=== PATIENT | male | born 1995 | race Caucasian/White ===

== ENCOUNTER 2025-05-09 16:08 | Outpatient (REF) | payer MEDICAID, SELFPAY ==
--- OUTSIDE RECORDS SUMMARY | 2025-05-09 15:20 | XMS_ITS | Encounter Summary ---
Author Organization [employer] Address [address] [place] [address] Care Team Providers Care Geothermal Powerplant Supervisor Name Role Phone Nadine Fry MD Primary Care Provide r Reason for Visit * Reason Comments Exposure to STD Encounter Details Date Type Department Care Team (Late st Contact Info) Description 05/09/2025 3:20 PM EDT Office Visit [facility] [address] [place] [address] Nadine Fry MD [address] [place] [address] Herpes simplex infection of penis (Primary Dx); Screening examination for STI; Trichomoniasis; Elevated blood pressure reading Social History Tobacco Use Types Packs/Day Years Used Date Smoking Tobacco: Every Day Cigarettes Passive Smoke Exposure: Current Smokeless Tobacco: Never Tobacco Cessation:Ready to Q uit: Not Asked; Counseling Given: Not Answered Sex and Gender Information Value Date Recorded Sex Assigned at Male 05/09/2025 1:14 PM EDT Legal Sex Male 2:45 AM EDT Gender Identity Male 05/09/2025 1:14 PM EDT Sexual Orientation Straight 05/09/2025 1: 14 PM EDT documented as of this encounter Last Filed Vital Signs Vital Sign Reading Time Taken Comments Blood Pressure 147/88 05/09/2025 3:03 PM EDT Pulse 94 05/09/2025 3:03 PM EDT Temperature 37.2 C (99 F) 05/09/2025 3:03 PM EDT Respiratory Rate 18 05/09/2025 3:03 PM EDT Oxygen Saturation 96% 05/09/2025 3:03 PM EDT Inhaled Oxygen Concentration - - Weight 60.5 kg (133 lb 6.4 oz) 05/09/2025 3:03 P M EDT Height 160 cm (5' 3 ) 05/09/2025 3:03 PM EDT Body Mass Index 23.63 05/09/2025 3:03 PM EDT documented in this encounter Progress Notes * Nadine Salazar MD - 05/09/2025 3:20 PM EDT SUBJECTIVE: Jose Angel Padron is a 30 y.o. year old male who presents for New patient/acute visit . Occupation:he works on freezers with [employer] Lives with:partner - EtOH on holidays and special ocassions 6 drinks - smoking cigarettes 1 pack daily - recreational drug use: marijuana smokes every day Diet:regular Exercise:3 times a week 45 min cardiovascular exercise Surgeries/Hospitalizations:appendicectomy PMHx:genital herpes ( age 17) FMHx:grandmother paternal colon cancer >60 y/o Immunizations: Reviewed Acute Concerns: Patient reports herpes outbreak for 1 week Patient also reports his partner came back positive today for trichomoniasis and started treatment Social History Social History Narrative Not on file Problem List[1] Family History[2] Review of Systems Constitutional: Negative. HENT: Negative. Respiratory: Negative. Cardiovascular: Negative. Genitourinary: Positive for genital sores. Negative for decreased urine volume, difficulty urinating, dysuria, enuresis, flank pain, frequency, hematuria, penile discharge, penile pain, penile swelling, scrotal swelling, testicular pain and urgency. Skin: Positive for rash. OBJECTIVE: Vitals: 05/09/25 1503 BP: (!) 147/88 BP Location: Left arm Patient Position: Sitting BP Cuff Size: Adult Pulse: 94 Resp: 18 Temp: 99 ??F (37.2 ??C) TempSrc: Temporal SpO2: 96% Weight: 133 lb 6.4 oz (60.5 kg) Height: 5' 3 (1.6 m) Physical Exam Constitutional: Appearance: Normal appearance. Cardiovascular: Rate and Rhythm: Normal rate and regular rhythm. Pulmonary: Effort: Pulmonary effort is normal. Breath sounds: Normal breath sounds. Abdominal: General: Abdomen is flat. Palpations: Abdomen is soft. Musculoskeletal: Right lower leg: No edema. Left lower leg: No edema. Neurological: Mental Status: He is alert. Follow Up: No follow-ups on file. Medications Ordered Prior to Encounter[3] Problem List Items Addressed This Visit Herpes simplex infection of penis - Primary Relevant Medications acyclovir (Zovirax) 800 MG tablet metroNIDAZOLE (Flagyl) 500 MG tablet Screening examination for STI Relevant Medications acyclovir (Zovirax) 800 MG tablet metroNIDAZOLE (Flagyl) 500 MG tablet Other Relevant Orders Chlamydia/Trichomonas/Neisseria gonorrhoeae, PCR, Urine HIV-1/2 Antigen and Antibodies, Fourth Generation, with Reflexes Hepatitis A,B,C Profile RPR (Monitor) with Reflex to Titer Trichomoniasis Relevant Medications acyclovir (Zovirax) 800 MG tablet metroNIDAZOLE (Flagyl) 500 MG tablet Elevated blood pressure reading I advised low-sodium diet and to maintain a healthy weight, I will reevaluate on next visit [1] Patient Active Problem List Diagnosis Herpes simplex infection of penis Screening examination for STI Trichomoniasis Elevated blood pressure reading [2] No family history on file. [3] No current outpatient medications on file prior to visit. No current facility-administered medications on file prior to visit. documented in this encounter Miscellaneous Notes * Assessment & Plan Note - Nadine Salazar MD - 05/09/2025 4:16 PM EDT Associated Problem(s): Elevated blood pressure reading I advised low-sodium diet and to maintain a healthy weight, I will reevaluate on next visit documented in this encounter Plan of Treatment Upcoming Encounters Date Type Department Care Team (Late st Contact Info) Description 06/30/2025 1:15 PM EST Office Visit [facility] [address] [place] [address] Nadine Fry MD [address] [place] [address] Scheduled Orders Name Type Priority Associated Diagnoses Orde r Schedule HIV-1/2 Antigen and Antibodies, Fourth Generation, with Reflexes Lab Routine Screening examination for STI Expected: 05/09/2025 (Approximate), Expires: 05/09/2026 Hepatitis A,B,C Profile Lab Routine Screening examination for STI Expected: 05/09/2025, Expires: 05/09/2026 RPR (Monitor) with Reflex to Titer Lab Routine Screening examination for STI Expected: 05/09/2025, Expires: 05/09/2026 documented as of this encounter Procedures Procedure Name Priority Date/Time Associated Diagnosis Comments CHLAMYDIA/TRICHOMON /NEISSERIA GONORRHOEAE, PCR, URINE Routine 05/09/2025 3:20 PM EDT Screening examination for STI documented in this encounter Results * Chlamydia/Trichomonas/Neisseria gonorrhoeae, PCR, Urine (05/09/2025 3:20 PM EDT) CT PCR, Urine NOT DETECTED Not Detect. [facility] Comment:A not detected test result does not exclude the possibilityof infection because test results can be affected byimproper specimen collection, concurrent antibiotic therapy,or the number of organisms in the specimen which may bebelow the sensitivity of the test. As with many diagnostictests, results from the Xpert CT/NG assay should beinterpreted in conjunction with other laboratory andclinical data available to the clinician.The Xpert CT/NG assay should not be used for the evaluationof suspected sexual abuse or for other medico-legalindications. Additional testing is recommended in anycircumstance when false positive or false negative resultscould lead to adverse medical, social or psychologicalconsequences. NG PCR, Urine NOT DETECTED Not Detect. [facility] Comment:A not detected test result does not exclude the possibilityof infection because test results can be affected byimproper specimen collection, concurrent antibiotic therapy,or the number of organisms in the specimen which may bebelow the sensitivity of the test. As with many diagnostictests, results from the Xpert CT/NG assay should beinterpreted in conjunction with other laboratory andclinical data available to the clinician.The Xpert CT/NG assay should not be used for the evaluationof suspected sexual abuse or for other medico-legalindications. Additional testing is recommended in anycircumstance when false positive or false negative resultscould lead to adverse medical, social or psychologicalconsequences. Urine (Urine, Random) 05/09/2025 3:20 PM EDT 05/09/2025 4:16 PM EDT us Nadine Salazar MD LAB URINE ORDERABLES Final Result [facility] [address] [place] [phone] [phone] documented in this encounter Visit Diagnoses Diagnosis Herpes simplex infection of penis- Primary Screening examination for STI Trichomoniasis Elevated blood pressure reading Elevated blood pressure reading without diagnosis of hypertension documented in this encounter Care Teams Geothermal Powerplant Supervisor Relationship Specialty Start Date End Date Nadine Fry MD [address] [place] [phone] PCP - General Internal Medicine 05/09/25 documented as of this encounter
[2025-05-09 18:10] LABS: CT PCR Urine NOT DETECTED (Not Detect.); NG PCR Urine NOT DETECTED (Not Detect.)
--- OUTSIDE RECORDS SUMMARY | 2025-05-09 20:34 | XMS_ITS | Encounter Summary ---
Author Organization [facility] Address [address] [place] [phone] Phone Care Team Providers Care Residential Pest Control Technician Name Role Phone Marta Marie NP Primary Care Provider Niurka arambula Encounter Details Date Type Department Care Team (Late st Contact Info) Description 03/06/2017 Conversion Encounter [facility] - [address] [address] Social History Tobacco Use Types Packs/Day Years Used Date Smoking Tobacco: Some Days Comments:Current some day sm oker Sex and Gender Information Value Date Recorded Sex Assigned at Not on file Legal Sex Male 4:55 PM EDT Gender Identity Not on file Sexual Orientation Not on file documented as of this encounter Plan of Treatment Not on file documented as of this encounter Visit Diagnoses Not on filedocumented in this encounter Care Teams Residential Pest Control Technician Relationship Specialty Start Date End Date Marta Marie NP PCP - General 02/28/17 11/05/22 documented as of this encounter
--- OUTSIDE RECORDS SUMMARY | 2025-05-09 20:34 | XMS_ITS | Clinical Summary ---
Author Organization [employer] [facility] Address [address] [facility] [address] [place] [address] Care Team Providers Care Lighting Fixture Installer Name Role Phone Nadine Fry MD Primary Care Provide r Allergies No known active allergies Medications acyclovir (Zovirax) 800 MG tabletIndicatio ns:Herpes simplex infection of penis Take 1 tablet (800 mg) by mouth 2 times daily for 5 days. 10 tablet 05/09/2025 5 Active metroNIDAZOLE (Flagyl) 500 MG tabletIndicatio ns:Trichomonias is Take 4 tablets (2,000 mg) by mouth 1 (one) time for 1 dose. 4 tablet 05/09/2025 5 Active Active Problems Problem Noted Date Diagnosed Date Herpes simplex infection of penis 05/09/2025 Screening examination for STI 05/09/2025 Trichomoniasis 05/09/2025 Elevated blood pressure reading 05/09/2025 Assessment & Plan (05/09/2025 4:16 PM EDT): I advised low-sodium diet and to maintain a healthy weight, I will reevaluate on next visit Encounters Date Type Department Care Team Description 05/09/2025 3:20 PM EDT Office Visit [facility] [address] [facility] [place] [address] Nadine Fry MD Herpes simplex infection of penis (Primary Dx); Screening examination for STI; Trichomoniasis; Elevated blood pressure reading 05/09/2025 Travel 03/23/2025 Population Health Risk Score [facility] ([facility]) Department [address] [facility] [address] [place] [address] Provider, Population Health Generic from Last 3 Months Social History Tobacco Use Types Packs/Day Years [...] Orientation Straight 05/09/2025 1: 14 PM EDT Last Filed Vital Signs Vital Sign Reading [...] Mass Index 23.63 05/09/2025 3:03 PM EDT Plan of Treatment Upcoming Encounters Date Type Department Care Team (Late st Contact Info) Description 06/30/2025 1:15 PM EST Office Visit [facility] MEDICINE [address] [place] [phone] Nadine Fry MD [address] [place] [address] Health Maintenance Due Date Last Done Comments Depression Screening 1996 HIV Screening 1996 Lipid Panel 1996 SDOH Screening 1996 Disability Screening 1996 Alcohol/Substance Use Screening 2008 Family Planning (PISQ) 2011 Hepatitis C Screening 2014 HPV Vaccines (2 - Male 3-dose series) 07/28/2014 06/30/2014 Pneumococcal Vaccine: Pediatrics (0 to 5 Years) and At-Risk Patients (6 to 49) Years (1 of 2 - PCV) 2015 COVID-19 Vaccine ( season) 2025 Influenza Vaccine (#1) 2025 4, 08/01/2009, 08/01/2009 Tobacco Screening 05/09/2026 05/09/2025 DTaP/Tdap/Td Vaccines (8 - Td or Tdap) 02/06/2035 02/06/2025, 08/01/2009, 03/04/2001, Additional history exists Zoster Vaccines (1 of 2) 2046 RSV Patients and Patients Aged 60 years or older (1 - 1-dose 75+ series) 2071 Hepatitis B Vaccines Completed 1996, 1996, 1996 HIB Vaccines Completed 11/23/1997, 11/19, 1996, Additional history exists IPV Vaccines Completed 03/04/2001, 12/1997, 1996, Additional history exists Meningococcal Vaccine Aged Out 08/01/2009 No celina flory eligible based on patient's age to complete this topic Hepatitis A Vaccines Aged Out No long er eligible based on patient's age to complete this topic Meningococcal B Vaccine Aged Out No l onger eligible based on patient's age to complete this topic RSV under 20 months Aged Out No longe r eligible based on patient's age to complete this topic Rotavirus Vaccines Aged Out No longer eligible based on patient's age to complete this topic Procedures Procedure Name Priority Date/Time Associated Diagnosis Comments CHLAMYDIA/TRICHOMON /NEISSERIA GONORRHOEAE, PCR, URINE Routine 05/09/2025 3:20 PM EDT Screening examination for STI from Last 3 Months Results * Chlamydia/Trichomonas/Neisseria gonorrhoeae, PCR, Urine (05/09/2025 3:20 PM EDT) CT PCR, Urine NOT DETECTED Not Detect. [facility] Comment:A not detected test result does [...] NG PCR, Urine NOT DETECTED Not Detect. [facility] Comment:A not detected test result does [...] Salazar MD LAB URINE ORDERABLES Final Result Performing Organization Address City/State/[facility] Co de Phone Number [facility] [address] [place] [phone] from Last 3 Months Insurance [facility] C[facility] Care Teams Lighting Fixture Installer Relationship Specialty Start Date End Date Nadine Fry MD [address] [place] [phone] PCP - General Internal Medicine 05/09/25
--- OUTSIDE RECORDS SUMMARY | 2025-05-09 20:34 | XMS_ITS | Encounter Summary ---
Author Organization [facility] Address [address] [place] [address] Phone Care Team Providers Care Public Employment Mediator Name Role Phone Marta Marie TUBE FILLER Primary Care Provider Niurka arambula Encounter Details Date Type Department Care Team (Late st Contact Info) Description 11/10/2013 Documentation [facility] Family Medicine [address] [place] [address] Family Medicine, Physician [address] [place] [address] Social History Tobacco Use Types Packs/Day Years Used Date Smoking Tobacco: Never Assessed Sex and Gender Information Value Date Recorded Sex Assigned at Not on file Legal Sex Male 4:55 PM EDT Gender Identity Not on file Sexual Orientation Not on file documented as of this encounter Plan of Treatment Not on file documented as of this encounter Visit Diagnoses Not on filedocumented in this encounter Care Teams Public Employment Mediator Relationship Specialty Start Date End Date Marta Marie NP PCP - General 02/28/17 11/05/22 documented as of this encounter
--- OUTSIDE RECORDS SUMMARY | 2025-05-09 20:34 | XMS_ITS | Encounter Summary ---
Author Organization [employer] Address [address] [facility] [address] [place] [address] Care Team Providers Care Oncology Account Specialist Name Role Phone Nadine Fry MD Primary Care Provide r Encounter Details Date Type Department Care Team (Latest Contact Info) Description 05/09/2025 Travel Social History Tobacco Use Types Packs/Day Years Used Date Smoking Tobacco: Every Day Cigarettes Passive Smoke Exposure: Current Smokeless Tobacco: Never Sex and Gender Information Value Date Recorded Sex Assigned at Male 05/09/2025 1:14 PM EDT Legal Sex Male 2:45 AM EDT Gender Identity Male 05/09/2025 1:14 PM EDT Sexual Orientation Straight 05/09/2025 1: 14 PM EDT documented as of this encounter Plan of Treatment Upcoming Encounters Date Type Department Care Team (Late st Contact Info) Description 06/30/2025 1:15 PM EST Office Visit [facility] MED[facility] [address] [place] [address] Nadine Fry MD [address] [place] [address] documented as of this encounter Visit Diagnoses Not on filedocumented in this encounter Care Teams Oncology Account Specialist Relationship Specialty Start Date End Date Nadine Fry MD [address] [place] [phone] PCP - General Internal Medicine 05/09/25 documented as of this encounter
--- OUTSIDE RECORDS SUMMARY | 2025-05-09 20:34 | XMS_ITS | Patient Health Record ---
Author Organization [facility] Address [address] [place] [address] Care Team Providers Care Disulfurizer Tender Name Role Phone NO, PCP Primary Care Provider [phone] Shikha Nicole Unavailable [phone] Reason For Referral No Information Social History Sex Assigned At : Social History Observation Description Sex Assigned At Male Encounters Encounter Location Date Provider Diagnosis [facility] [address] [place] [address] 11/11/2024 Shikha Nicole Plan Of Treatment No Information Insurance Providers Payer Name Payer Address Payer Phone Subscriber Number Group Number Insured Name Patient Relationship to Insured Coverage Start Date Coverage End Date [place] Standard [address] [place] [address] [id number] Jose Angel Padron Self - patient is the insured 5
--- OUTSIDE RECORDS SUMMARY | 2025-05-09 20:34 | XMS_ITS | Clinical Summary ---
Author Organization [facility] Address [address] [place] [address] Phone Care Team Providers Care Top Collar Baster Name Role Phone Unavailable Primary Care Provider Unavailabl e Immunizations Immunization Administration Dates Next Due DTaP 5 03/04/2001, 8,1996, 997,1996 H1N1 08/01/2009 HPV, Quadrivalent 06/30/2014 Hep B, ped/adol 1996,1996,1996 Hib (PRP-T) 11/23/1997, 7,1996, 996 IPV 03/04/2001 Influenza, injectable, quadrivalent 06/30/2014 Influenza, injectable, trivalent 08/01/2009 MMR 03/04/2001,11/23/1997 Meningococcal Conj (Menactra) MCV4P 08/01/2009 OPV 11/23/1997,1996,1996 Tdap 08/01/2009 Varicella 08/01/2009,03/04/2001 Family History Relation Name Status Comments Brother Alive Brother: Asthma Mother Alive Mother: Alive a nd well Other Family history of Seizure disorder, No family history of Migraines, Family history of Diabetes mellitus, Family history of Cancer, breast, No family history of Stroke, No family history of Obesity, No family history of Strabismus, No family history of Sudden , No family history of Heart disease Social History Tobacco Use Types Packs/Day Years Used Date Smoking Tobacco: Some Days Comments:Current some day sm oker Sex and Gender Information Value Date Recorded Sex Assigned at Not on file Legal Sex Male 4:55 PM EDT Gender Identity Not on file Sexual Orientation Not on file Last Filed Vital Signs Vital Sign Reading Time Taken Comments Blood Pressure 104/60 06/30/2014 12:00 AM EST Pulse 70 06/30/2014 12:00 AM EST Temperature 36.4 C (97.5 F) 03/16/2014 12:00 AM EDT Respiratory Rate - - Oxygen Saturation - - Inhaled Oxygen Concentration - - Weight 50.8 kg (112 lb) 06/30/2014 12:00 AM EST Height 157.5 cm (5' 2 ) 06/30/2014 12:00 AM EST Body Mass Index 20.49 06/30/2014 12:00 AM EST Plan of Treatment Health Maintenance Due Date Last Done Comments HPV Vaccines (2 - Male 3-dose series) 07/28/2014 06/30/2014 DTaP,Tdap,and Td Vaccines (7 - Td or Tdap) 08/01/2019 08/01/2009, 03/04/2001, 11/23/1997, Additional history exists Influenza Vaccines (#1) 2025 06/30/2014, 08/01 COVID-19 Vaccine ( - season) 2025 Hepatitis B Vaccines Completed 1996, 1996, 1996 HIB Vaccines Completed 11/23/1997, 11/19, 1996, Additional history exists IPV Vaccines Completed 03/04/2001, 12/1997, 1996, Additional history exists MMR Vaccines Completed 03/04/2001, 11/23/1997 Meningococcal Vaccine Aged Out 08/01/2009 No celina flory eligible based on patient's age to complete this topic Varicella Vaccines Completed 08/01/2009, 03/04/2001 Hepatitis A Vaccines Aged Out No long er eligible based on patient's age to complete this topic Men B Vaccine Aged Out No longer elig ible based on patient's age to complete this topic Pneumococcal Vaccine Aged Out No long er eligible based on patient's age to complete this topic
== END 2025-05-09 16:09 | disposition home or self-care (01) ==
LOC: HO.HHCLNP 16:08
PROVIDERS: Visit Provider Internal Medicine
DX: Z20.2 Contact with and (suspected) exposure to infections with a predominantly sexual mode of transmission (principal)
CPT/HCPCS: 87491; 87591